=== PATIENT | male | born 1985 | race Caucasian/White ===

== ENCOUNTER 2018-12-26 20:01 | Emergency (ER) | payer MEDICAID ==
[~2018-12-26] VITALS: Ht 182.9 cm; Wt 84.4 kg
[2018-12-26 20:18] VITALS: BP 136/74
[2018-12-26] MEDS ORDERED: proparacaine 0.5% ophthalmic drops 15ml LEFTEYE ONE (21:30)
[2018-12-26] MEDS ORDERED: ciprofloxacin 0.3% 2.5ml ophthalmic solution LEFTEYE SCH (21:45)
[2018-12-26] MEDS ORDERED: ciprofloxacin 0.3% 2.5ml ophthalmic solution LEFTEYE ONE (21:45)
== END 2018-12-26 22:05 | disposition home or self-care (01) ==
LOC: ER 20:01
DX: H10.9 Unspecified conjunctivitis (principal)
CPT/HCPCS: 99282

== ENCOUNTER 2021-03-17 22:48 | Emergency (ER) | payer MEDICAID ==
[~2021-03-17] VITALS: Ht 185.4 cm; Wt 90.9 kg
[2021-03-17 22:52] VITALS: BP 158/92
== END 2021-03-18 00:14 | disposition home or self-care (01) ==
LOC: ER 22:49
DX: M79.10 Myalgia, unspecified site (principal); T50.B95A Adverse effect of other viral vaccines, initial encounter; R19.7 Diarrhea, unspecified; Z98.890 Other specified postprocedural states; Y92.89 Other specified places as the place of occurrence of the external cause
CPT/HCPCS: 99282